=== PATIENT | male | born 1960 | race Caucasian/White ===

== ENCOUNTER 2017-06-28 10:18 | Emergency (ER) | payer MEDICAID, SELFPAY ==
[2017-06-28 10:20] VITALS: BP 133/84; PULSE 88; RESP 16; TEMP 36.6; O2SAT 99; BMI 28.1
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
--- NOTE | 2017-06-28 17:56 | ED.VISSUMM ---
- ER Visit Summary Date of Service: 06/28/17 Chief Complaint: Heroin withdrawal History of Present Illness: The patient is a 57 M with no primary care physician. He reports that he has been using heroin IV for approximately 5 years. States his last use was 3 days ago. States that he feels like he is shaky and has electricity running through his body. He has been unable to sleep. Also reports that he has had diffuse abdominal pain he is vomited multiple times without blood in his emesis. He has diarrhea all the time without blood in his stool. He complains of diffuse myalgias and arthralgias. Patient reports that he has had clonidine in the past and that has never worked and that he wants Suboxone. Physical Examination: Vitals: Stable. Afebrile. General: Well-nourished and well-developed. Head: Normocephalic atraumatic. Neck: Supple, no lymphadenopathy. No JVD. Nontender. Cardiovascular: Regular rate and rhythm. No murmurs. Respiratory: No respiratory distress. Clear to auscultation bilaterally. Abdominal: Soft, nontender, nondistended, normal bowel sounds. No guarding, rebound, or peritoneal signs. Back: Nontender. Extremities: Nontender, no edema. Skin: Normal color, no rash. Neurologic: Alert and oriented ?3. Cranial nerves II through XII are intact. Normal strength and sensation. Psych: Agitated. Emergency Department Course and Treatment: The patient's significant other pulled me aside and stated that he is not being truthful. She reports that he was released from prison 2 weeks ago and has not had opportunity to get her 1 or fentanyl as he states that he is. However, she reports that he has been taking my pills by the handful and drinking alcohol like a fish. I discussed the patient with [facility] and they have come down the emergency department to see him. They asked that I have him seen by the counseling center. Patient denies any suicidal or homicidal ideation. No auditory or visual hallucinations. I wrote for blood work and a alcohol level. The patient walked out of the emergency department before any of this was obtained. I have no reason to pink slip him and he was allowed to leave. Disposition: Eloped Impression: 1. Reported opiate withdrawal. This note was generated with [employer] software. It may contain incorrect words, spelling, and punctuation that were not noted in review of the chart prior to signing ED Disposition - Plan for ED Patient: Disposition: Against Medical Advice Chief Complaint: Subst Abuse Referrals: Care Physician,No Primary [Primary Care Provider] -
--- NOTE | 2017-06-28 17:59 | ED.DCSUM_ITS ---
- ER Visit Summary Date of Service: 06/28/17 Chief Complaint: Heroin withdrawal History of Present Illness: The patient is a 57 M with no primary care physician. He reports that he has been using heroin IV for approximately 5 years. States his last use was 3 days ago. States that he feels like he is shaky and has electricity running through his body. He has been unable to sleep. Also reports that he has had diffuse abdominal pain he is vomited multiple times without blood in his emesis. He has diarrhea all the time without blood in his stool. He complains of diffuse myalgias and arthralgias. Patient reports that he has had clonidine in the past and that has never worked and that he wants Suboxone. Physical Examination: Vitals: Stable. Afebrile. General: Well-nourished and well-developed. Head: Normocephalic atraumatic. Neck: Supple, no lymphadenopathy. No JVD. Nontender. Cardiovascular: Regular rate and rhythm. No murmurs. Respiratory: No respiratory distress. Clear to auscultation bilaterally. Abdominal: Soft, nontender, nondistended, normal bowel sounds. No guarding, rebound, or peritoneal signs. Back: Nontender. Extremities: Nontender, no edema. Skin: Normal color, no rash. Neurologic: Alert and oriented ?3. Cranial nerves II through XII are intact. Normal strength and sensation. Psych: Agitated. Emergency Department Course and Treatment: The patient's significant other pulled me aside and stated that he is not being truthful. She reports that he was released from alf 2 weeks ago and has not had opportunity to get her 1 or fentanyl as he states that he is. However, she reports that he has been taking my pills by the handful and drinking alcohol like a fish. I discussed the patient with [facility] and they have come down the emergency department to see him. They asked that I have him seen by the counseling center. Patient denies any suicidal or homicidal ideation. No auditory or visual hallucinations. I wrote for blood work and a alcohol level. The patient walked out of the emergency department before any of this was obtained. I have no reason to pink slip him and he was allowed to leave. Disposition: Eloped Impression: 1. Reported opiate withdrawal. This note was generated with [employer] software. It may contain incorrect words, spelling, and punctuation that were not noted in review of the chart prior to signing ED Disposition - Plan for ED Patient: Disposition: Against Medical Advice Chief Complaint: Subst Abuse Referrals: Care Physician,No Primary [Primary Care Provider] -
== END 2017-06-28 11:05 | disposition left against medical advice (07) ==
PROVIDERS: Emergency Provider Emergency Medicine
DX: F11.23 Opioid dependence with withdrawal (principal); T40.1X1A Poisoning by heroin, accidental (unintentional), initial encounter; R25.1 Tremor, unspecified; R10.9 Unspecified abdominal pain; R11.10 Vomiting, unspecified; Y92.9 Unspecified place or not applicable
CPT/HCPCS: 99281

== ENCOUNTER 2017-06-28 16:49 | Emergency (ER) | payer MEDICAID, SELFPAY ==
[2017-06-28 16:51] VITALS: BP 120/85; PULSE 83; RESP 16; TEMP 36.2; O2SAT 95; BMI 24.0
--- NOTE | 2017-06-28 17:13 | EKG12_ITS ---
Test Reason : MHC Blood Pressure : / mmHG Vent. Rate : 068 BPM Atrial Rate : 068 BPM P-R Int : 132 ms QRS Dur : 084 ms QT Int : 410 ms P-R-T Axes : 048 000 027 degrees QTc Int : 435 ms Normal sinus rhythm Normal ECG Confirmed by DESHAWN GORDON, TRACE ([id number]), science editor BOOKER WEAVER ([id number]) on 07/01/2017 1:58:51 PM Referred By: ANITHA Confirmed By:TRACE HESS MD
[2017-06-28] MEDS: LORazepam 2 MG/ML Syringe IM (17:34)
[2017-06-28] MEDS: DiphenhydrAMINE 50 MG/ML Syringe 25 MG IM (17:34)
[2017-06-28] MEDS: Haloperidol Lactate 5 MG/ML Vial 10 MG IM (17:34)
[2017-06-28 17:50] LABS: Bacteria 0 SEEN /hpf (None Seen); Mucous, Urine 0 SEEN /hpf (<or=2+); Red Blood Cells-Urine 0 SEEN /hpf (0-5); Squamous Epithelial Cells - UA 0 SEEN /hpf (0-5); White Blood Cells 0 SEEN /hpf (0-5)
[2017-06-28 17:51] LABS: AST(SGOT) 15 U/L (15-37); Alanine Aminotransfer ALT/SGPT 19 U/L (16-61); Albumin, Serum 3.4 g/dL (3.2-5.0); Alkaline Phosphatase 91 U/L (45-117); Bilirubin, Direct < 0.05 mg/dL (0.00-0.30); Protein, Total 7.4 g/dL (6.4-8.2)
[2017-06-28 17:53] LABS: Absolute Lymphocyte Count 2.68 X10^3/ul (0.83-4.51); Absolute Neutrophil Count 5.3 X10^3/uL (2.0-7.7); Basophil# 0.05 X10^3/uL; Basophil% 0.5 % (0-1); Eosinophils% 5.3 % (0-5); Hematocrit 39.6 % (40-54); Hemoglobin 13.8 g/dl (13.0-16.5); Lymphocyte # 2.68 X10^3/ul (4.0); Lymphocyte % 28.4 % (19-41); Mean Corp Hgb Conc 34.8 g/gl (32-36); Mean Corpuscular Hgb 31.4 pg (27.0-32.0); Mean Platelet Vol. 10.1 fl (6.2-12.0); Monocyte# 0.84 X10^3/uL; Monocyte% 8.9 % (0-10); Neutrophil # 5.32 X10^3/uL (2.7-7.7); Neutrophil % 56.5 % (47-70); POSITIVE COUNT NO; POSITIVE DIFFERENTIAL NO; POSITIVE MORPHOLOGY NO; Platelet Count 207 K/mm3 (150-450); RBC Distribution Width CV 13.2 % (11.6-14.6); White Blood Count 9.4 K/mm3 (4.4-11.0)
[2017-06-28 17:55] VITALS: BP 107/72; PULSE 72; RESP 13; O2SAT 95
[2017-06-28 18:01] VITALS: BP 100/68; PULSE 71; RESP 13; O2SAT 90
[2017-06-28 18:02] LABS: Color, Urine Yellow (Yellow); Glucose, Dipstick Normal (Normal); Ketone-Dipstick Negative (Negative); Leukocyte Esterase-Dipstick Negative /ul (Negative); Nitrite-Dipstick Negative (Negative); Occult Blood-Urine Negative /ul (Negative); Protein-Dipstick Negative (Negative); Urine Bilirubin Dipstick Negative (Negative); Urine Clarity Clear (Clear); Urine Urobilinogen Normal (Normal)
[2017-06-28 18:09] LABS: Anion Gap 9 (5-15); BUN 13 mg/dL (7-18); BUN/Creat Ratio 12.6 RATIO (10-20); Calcium,Total 8.5 mg/dL (8.5-10.1); Chloride 110 mmol/L (98-107); Creatinine, Serum 1.03 mg/dL (0.70-1.30); EST Glomerular Filtration Rate 79 mL/min (>60); Est Glom Filt Rate - Afr Amer 96 mL/min (>60); Estimated Creatinine Clearance 76.55 ml/min; Glucose 119 mg/dL (74-106); Potassium 3.7 mmol/L (3.5-5.1); Sodium Level 142 mmol/L (136-145); Thyroid Stim Hormone (TSH) 0.26 uIU/mL (0.358-3.74)
[2017-06-28 18:15] LABS: Amphetamine Urine VISTA NEGATIVE (<1000 ng/mL); Barbiturate Urine VISTA NEGATIVE (< 200 ng/mL); Benzodiazepine Urine VISTA POSITIVE (< 200 ng/mL); Cocaine Urine VISTA NEGATIVE (< 300 ng/mL); Ecstacy Urine VISTA NEGATIVE (< 500 ng/mL); Methadone Urine VISTA NEGATIVE (< 300 ng/mL); PCP Urine VISTA NEGATIVE (< 25 ng/mL); THC Urine VISTA NEGATIVE (< 50 ng/mL); Vista UDS pH Range 5
[2017-06-28 19:09] VITALS: BP 97/66; PULSE 70; RESP 20; O2SAT 97
[2017-06-28 20:39] VITALS: BP 100/66; PULSE 66; RESP 14; O2SAT 97
--- NOTE | 2017-06-28 21:14 | NURSING ---
CALLED [facility] TO SEE THIS PT
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
[2017-06-28 23:33] VITALS: BP 112/66; PULSE 67; RESP 18; O2SAT 99
[2017-06-29] VITALS (18 sets, daily range): BP systolic 92–125; BP diastolic 46–79; PULSE 70–118; RESP 14–22; O2SAT 92–98
--- NOTE | 2017-06-29 01:51 | ED.RN ---
PT WOKE UP AND ASKED TO GO TO THE BATHROOM AND A DRINK. THIS RN ASSESSED PT, PT WAS A&Ox3, NOT THREATENING TO LEAVE, AND UNDERSTOOD WHY HE WAS HERE. PT VERBALIZED UNDERSTANDING OF HAVING TO STAY IN ER. RESTRAINTS REMOVED.
--- NOTE | 2017-06-29 09:27 | ED.RN ---
AIDE IS COMING TO SEE PATIENT FROM [facility]
[2017-06-29] MEDS: LORazepam 1 MG Tablet 2 MG PO (16:36)
[2017-06-29] MEDS: DiphenhydrAMINE 50 MG/ML Syringe IM (22:10)
--- NOTE | 2017-06-29 22:29 | ED.RN ---
EARNESTINE FROM CRISIS CALLED STATING PATIENT WAS DENIED AT [facility] BECAUSE THEY BELIEVE HIS ISSUES ARE DRUG/ALCOHOL RELATED. EARNESTINE ALSO STATED CRISIS WOULD COME BACK IN THE MORNING TO TRY AND PLACE PATIENT AT [facility]. [facility] AND [facility]IS WILL TRY AGAIN IN THE MORNING.
[2017-06-30] VITALS (13 sets, daily range): BP systolic 102–125; BP diastolic 68–92; PULSE 18–80; RESP 12–20; O2SAT 94–99
[2017-06-30] MEDS: Ziprasidone IM 20 MG/ML VIAL IM (05:10)
--- NOTE | 2017-06-30 09:24 | NURSING ---
KRYSTLE, CRISIS, HERE
--- NOTE | 2017-06-30 12:16 | ED.RN ---
PT INFORMED STILL WAITING ON TRYING TO FIND PLACEMENT, PT STANDING IN DOORWAY RAPPING TO THE ED STAFF.
[2017-06-30] MEDS: Famotidine 20 MG Tablet 40 MG PO (15:06)
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
[2017-06-30] MEDS: Pramipexole Di-HCl 0.25 MG Tablet PO (16:08)
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
== END 2017-06-30 22:15 ==
PROVIDERS: Emergency Provider Emergency Medicine
DX: F10.129 Alcohol abuse with intoxication, unspecified (principal); F19.10 Other psychoactive substance abuse, uncomplicated; Y90.6 Blood alcohol level of 120-199 mg/100 ml; R45.851 Suicidal ideations; R45.850 Homicidal ideations; Z72.0 Tobacco use; F11.23 Opioid dependence with withdrawal; T40.1X1A Poisoning by heroin, accidental (unintentional), initial encounter; R25.1 Tremor, unspecified; R10.9 Unspecified abdominal pain; R11.10 Vomiting, unspecified; Y92.9 Unspecified place or not applicable
CPT/HCPCS: 80048; 80076; 80307; 80320; 81001; 84443; 85025; 93005; 96372; 99281; 99285; P9612; G0480; J3486

== ENCOUNTER 2017-08-03 20:46 | Emergency (ER) | payer MEDICAID, SELFPAY ==
[2017-08-03 20:48] VITALS: BP 166/88; PULSE 100; RESP 20; TEMP 36.7; O2SAT 96; BMI 30.5
[2017-08-03 21:51] VITALS: PULSE 102; RESP 16; O2SAT 97
--- NOTE | 2017-08-03 21:52 | EKG12_ITS ---
Test Reason : SUICIDAL Blood Pressure : / mmHG Vent. Rate : 080 BPM Atrial Rate : 080 BPM P-R Int : 134 ms QRS Dur : 082 ms QT Int : 368 ms P-R-T Axes : 030 -09 008 degrees QTc Int : 424 ms Normal sinus rhythm Normal ECG Confirmed by ZEV YUEN ([id number]), primer expeditor and drier BOOKER WEAVER ([id number]) on 08/09/2017 2:48:26 PM Referred By: JO Confirmed By:ZEV YUEN
[2017-08-03 22:05] LABS: Absolute Lymphocyte Count 1.91 X10^3/ul (0.83-4.51); Absolute Neutrophil Count 7.7 X10^3/uL (2.0-7.7); Basophil# 0.03 X10^3/uL; Basophil% 0.3 % (0-1); Eosinophil# 0.28 X10^3/uL; Eosinophils% 2.6 % (0-5); Hematocrit 40.9 % (40-54); Hemoglobin 13.8 g/dl (13.0-16.5); Lymphocyte # 1.91 X10^3/ul (4.0); Lymphocyte % 17.7 % (19-41); Mean Corp Hgb Conc 33.7 g/gl (32-36); Mean Corpuscular Hgb 31.4 pg (27.0-32.0); Mean Corpuscular Volume 93.2 fL (80-94); Mean Platelet Vol. 10.2 fl (6.2-12.0); Monocyte# 0.88 X10^3/uL; Monocyte% 8.1 % (0-10); Neutrophil # 7.71 X10^3/uL (2.7-7.7); Neutrophil % 71.2 % (47-70); Platelet Count 201 K/mm3 (150-450); RBC Distribution Width CV 13.1 % (11.6-14.6); RBC Distribution Width SD 44.7 fl (35.1-43.9); Red Blood Count 4.39 M/mm3 (4.6-6.2); White Blood Count 10.8 K/mm3 (4.4-11.0)
[2017-08-03 22:06] LABS: POSITIVE COUNT NO; POSITIVE DIFFERENTIAL NO; POSITIVE MORPHOLOGY NO
[2017-08-03 22:12] LABS: Amphetamine Urine VISTA NEGATIVE (<1000 ng/mL); Barbiturate Urine VISTA NEGATIVE (< 200 ng/mL); Benzodiazepine Urine VISTA POSITIVE (< 200 ng/mL); Cocaine Urine VISTA NEGATIVE (< 300 ng/mL); Ecstacy Urine VISTA NEGATIVE (< 500 ng/mL); Methadone Urine VISTA NEGATIVE (< 300 ng/mL); PCP Urine VISTA NEGATIVE (< 25 ng/mL); THC Urine VISTA NEGATIVE (< 50 ng/mL); Vista UDS pH Range 6
[2017-08-03 22:14] LABS: ALB/GLOB Ratio 0.9 RATIO (0.9-2.4); AST(SGOT) 10 U/L (15-37); Alanine Aminotransfer ALT/SGPT 18 U/L (16-61); Albumin, Serum 3.6 g/dL (3.2-5.0); Alkaline Phosphatase 70 U/L (45-117); Anion Gap 7 (5-15); BUN 17 mg/dL (7-18); BUN/Creat Ratio 12.8 RATIO (10-20); Calcium,Total 9.2 mg/dL (8.5-10.1); Chloride 111 mmol/L (98-107); Creatinine, Serum 1.33 mg/dL (0.70-1.30); EST Glomerular Filtration Rate 59 mL/min (>60); Est Glom Filt Rate - Afr Amer 71 mL/min (>60); Estimated Creatinine Clearance 59.29 ml/min; Globulin 4.1 g/dL (2.2-4.2); Glucose 129 mg/dL (74-106); Potassium 3.3 mmol/L (3.5-5.1); Protein, Total 7.7 g/dL (6.4-8.2); Sodium Level 143 mmol/L (136-145)
--- NOTE | 2017-08-03 22:24 | ED.VISSUMM ---
- ER Visit Summary Date of Service: 08/03/17 Chief Complaint: Hearing voices and suicidal ideation History of Present Illness: The patient is a 57 M who states that for years he has been hearing voices. He states that over the past couple days they have been ladder telling him to kill himself. 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 It is while he was in long-term he was put on Depakote. He was seen about 1 month ago in the emergency room and was transferred to [facility]. He states he is restarted on his medicines. He states that the medicines have not controlled his voices. States he has not done any methamphetamines for about 3-1/2 years. He does use marijuana. He has no particular plan. He has been seen in counseling. Patient states that for years he has had very high highs and very low lows. He states that he is very feeling very low at the current time. Physical Examination: Afebrile vital signs are stable Gen: Well-nourished well-developed Head: Normocephalic atraumatic Eyes: Perrl EOMI ENT: TMs clear no rhinorrhea moist mucous membranes Neck: Supple no lymphadenopathy no JVD nontender CVS: Regular rate rhythm no murmurs normal S1-S2 Respiratory: No distress clear to auscultation bilaterally chest nontender Abdomen: Soft nontender nondistended normal bowel sounds no masses Back: Nontender Extremity: Nontender no edema Skin: Normal color no rash Neuro: alert orientated ?3 CN II-XII intact normal strength sensation reflexes gait cerebellar Psych: Admits to hearing voices that are telling him to kill himself. He does appear internally stimulated and has a rather flat affect Test Results: Psychiatric screening labs were obtained Emergency Department Course and Treatment: Patient was cleared for psychiatric evaluation. Crisis was contacted. Impression: 1. Schizophrenia This note was generated with [employer] dictation software. It may contain incorrect words, spelling, and punctuation that were not noted in review of the chart prior to signing ED Disposition - Plan for ED Patient: Chief Complaint: Suicidal Referrals: Care Physician,No Primary [Primary Care Provider] -
--- NOTE | 2017-08-03 22:27 | ED.DCSUM_ITS ---
- ER Visit Summary Date of Service: 08/03/17 Chief Complaint: Hearing voices and suicidal ideation History of Present Illness: The patient is a 57 M who states that for years he has been hearing voices. He states that over the past couple days they have been ladder telling him to kill himself. 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 It is while he was in care home he was put on Depakote. He was seen about 1 month ago in the emergency room and was transferred to [facility]. He states he is restarted on his medicines. He states that the medicines have not controlled his voices. States he has not done any methamphetamines for about 3-1/2 years. He does use marijuana. He has no particular plan. He has been seen in counseling. Patient states that for years he has had very high highs and very low lows. He states that he is very feeling very low at the current time. Physical Examination: Afebrile vital signs are stable Gen: Well-nourished well-developed Head: Normocephalic atraumatic Eyes: Perrl EOMI ENT: TMs clear no rhinorrhea moist mucous membranes Neck: Supple no lymphadenopathy no JVD nontender CVS: Regular rate rhythm no murmurs normal S1-S2 Respiratory: No distress clear to auscultation bilaterally chest nontender Abdomen: Soft nontender nondistended normal bowel sounds no masses Back: Nontender Extremity: Nontender no edema Skin: Normal color no rash Neuro: alert orientated ?3 CN II-XII intact normal strength sensation reflexes gait cerebellar Psych: Admits to hearing voices that are telling him to kill himself. He does appear internally stimulated and has a rather flat affect Test Results: Psychiatric screening labs were obtained Emergency Department Course and Treatment: Patient was cleared for psychiatric evaluation. Crisis was contacted. Impression: 1. Schizophrenia This note was generated with [employer]elixir dictation software. It may contain incorrect words, spelling, and punctuation that were not noted in review of the chart prior to signing ED Disposition - Plan for ED Patient: Chief Complaint: Suicidal Referrals: Care Physician,No Primary [Primary Care Provider] -
[2017-08-03 22:28] LABS: Alcohol, Blood (Medical)-Serum < 3.0 mg/dL; Valproic Acid (Depakene) Level 70 ug/mL (50-100)
[2017-08-04] VITALS (10 sets, daily range): BP systolic 103–134; BP diastolic 61–94; PULSE 66–77; RESP 16–20; O2SAT 96–99
[2017-08-04] MEDS: LORazepam 1 MG Tablet PO (04:27)
[2017-08-04] MEDS: Divalproex Sodium 250 MG Tablet 500 MG PO (07:44)
[2017-08-04] MEDS: Gabapentin 300 MG Capsule PO (07:44)
[2017-08-04] MEDS: Pantoprazole Sodium 40 MG Tablet PO (07:45)
== END 2017-08-04 10:53 ==
PROVIDERS: Emergency Medicine; Emergency Provider Emergency Medicine
DX: F20.9 Schizophrenia, unspecified (principal); F31.9 Bipolar disorder, unspecified; R45.851 Suicidal ideations; F12.90 Cannabis use, unspecified, uncomplicated; Z72.0 Tobacco use
CPT/HCPCS: 80053; 80164; 80307; 80320; 85025; 93005; 99283; G0480

== ENCOUNTER 2017-10-23 22:58 | Emergency (ER) | payer MEDICAID, SELFPAY ==
[2017-10-23 22:58] VITALS: BP 149/72; PULSE 92; RESP 15; TEMP 37; BMI 30.4
[2017-10-23] MEDS: Acetaminophen 500 MG Tablet 1000 MG PO (23:32)
[2017-10-23 23:47] LABS: Absolute Lymphocyte Count 2.72 X10^3/ul (0.83-4.51); Absolute Neutrophil Count 5.8 X10^3/uL (2.0-7.7); Basophil# 0.02 X10^3/uL; Basophil% 0.2 % (0-1); Eosinophil# 0.31 X10^3/uL; Eosinophils% 3.3 % (0-5); Hematocrit 40.3 % (40-54); Hemoglobin 13.9 g/dl (13.0-16.5); Lymphocyte # 2.72 X10^3/ul (4.0); Lymphocyte % 29.2 % (19-41); Mean Corp Hgb Conc 34.5 g/gl (32-36); Mean Corpuscular Volume 89.8 fL (80-94); Monocyte% 5.4 % (0-10); Neutrophil # 5.75 X10^3/uL (2.7-7.7); Neutrophil % 61.7 % (47-70); Platelet Count 194 K/mm3 (150-450); RBC Distribution Width CV 13.1 % (11.6-14.6); RBC Distribution Width SD 42.6 fl (35.1-43.9); Red Blood Count 4.49 M/mm3 (4.6-6.2); White Blood Count 9.3 K/mm3 (4.4-11.0)
[2017-10-23 23:48] LABS: POSITIVE COUNT NO; POSITIVE DIFFERENTIAL NO; POSITIVE MORPHOLOGY NO
[2017-10-24] VITALS (12 sets, daily range): BP systolic 110–137; BP diastolic 70–84; PULSE 60–81; RESP 16–18; O2SAT 95–99
[2017-10-24 00:01] LABS: Anion Gap 8 (5-15); BUN 16 mg/dL (7-18); BUN/Creat Ratio 12.9 RATIO (10-20); Calcium,Total 8.5 mg/dL (8.5-10.1); Chloride 111 mmol/L (98-107); Creatinine, Serum 1.24 mg/dL (0.70-1.30); EST Glomerular Filtration Rate 64 mL/min (>60); Est Glom Filt Rate - Afr Amer 77 mL/min (>60); Estimated Creatinine Clearance 63.59 ml/min; Glucose 120 mg/dL (74-106); Potassium 3.9 mmol/L (3.5-5.1); Sodium Level 143 mmol/L (136-145)
[2017-10-24 00:13] LABS: Alcohol, Blood (Medical)-Serum < 3.0 mg/dL; Valproic Acid (Depakene) Level 88 ug/mL (50-100)
[2017-10-24 00:35] LABS: Vista UDS pH Range 6
[2017-10-24] MEDS: Ziprasidone IM 20 MG/ML VIAL IM (00:35)
[2017-10-24 00:46] LABS: Amphetamine Urine VISTA NEGATIVE (<1000 ng/mL); Barbiturate Urine VISTA NEGATIVE (< 200 ng/mL); Benzodiazepine Urine VISTA NEGATIVE (< 200 ng/mL); Cocaine Urine VISTA NEGATIVE (< 300 ng/mL); Ecstacy Urine VISTA NEGATIVE (< 500 ng/mL); Methadone Urine VISTA NEGATIVE (< 300 ng/mL); PCP Urine VISTA NEGATIVE (< 25 ng/mL); THC Urine VISTA NEGATIVE (< 50 ng/mL)
--- NOTE | 2017-10-24 02:49 | ED.VISSUMM ---
- ER Visit Summary Date of Service: 10/24/17 Chief Complaint: Suicidal ideation History of Present Illness: The patient is a 57 M who goes to the counseling center. He reports he has had suicidal thoughts for the past 2-3 days. When asked about a plan he reports I cannot plan the next minute. He states that he has not slept for 3 days. States that he is having auditory hallucinations of music. He also reports that he is seeing shadow people. Patient reports that he is supposed to be on Remeron, Depakote, gabapentin and he ran out. When asked when he ran out he reports I do not know when. Physical Examination: Vitals: Stable. Afebrile. General: Well-nourished and well-developed. Head: Normocephalic atraumatic. Neck: Supple, no lymphadenopathy. No JVD. Nontender. Cardiovascular: Regular rate and rhythm. No murmurs. Respiratory: No respiratory distress. Clear to auscultation bilaterally. Abdominal: Soft, nontender, nondistended, normal bowel sounds. No guarding, rebound, or peritoneal signs. Back: Nontender. Extremities: Nontender, no edema. Skin: Normal color, no rash. Neurologic: Alert and oriented ?3. Cranial nerves II through XII are intact. Normal strength and sensation. Mental status exam: Patient appears their stated age. Good posture and grooming. Good eye contact. Normal rate, volume, and latency of speech. No homicidal ideation. Flow of thought is logical. Insight and judgment is fair. Test Results: CBC is normal. Chem-7 is more for chloride of 111 and glucose of 120. Tox screen shows opiates. Alcohol is negative. Depakote level is 88. Emergency Department Course and Treatment: Had a prolonged discussion with patient about treatment options. He was admitted to the hospital within the past few months with a similar episode. He was allowed to sleep in the emergency department overnight. On reassessment in the morning he reports that he is still having suicidal thoughts. Treatment Plan: The patient will be seen by the counseling center for evaluation. Disposition: Pending Impression: 1. Schizophrenia. 2. Depression. 3. Medication noncompliance. This note was generated with [employer] software. It may contain incorrect words, spelling, and punctuation that were not noted in review of the chart prior to signing ED Disposition - Plan for ED Patient: Chief Complaint: Suicidal Instructions: ED Depression Prescriptions: Aripiprazole [Abilify] 5 mg PO DAILY #30 tablet Divalproex Sodium [Depakote] 500 mg PO UD #120 tablet. Gabapentin [Neurontin] 400 mg PO UD #120 capsule Mirtazapine [Remeron] 30 mg PO QHS #30 tablet Referrals: Counseling,Center [GROUP OF PHYSICIANS] - As soon as possible
[2017-10-24] MEDS: Gabapentin 400 MG Capsule PO ×2 (07:20→18:07)
[2017-10-24] MEDS: Divalproex Sodium 250 MG Tablet 500 MG PO (07:20)
--- NOTE | 2017-10-24 07:42 | ED.RN ---
BREAKFAST TRAY DELIVERED, PT MORNING MEDICATIONS GIVEN AT THAT TIME. PT REFUSED ABILIFY, PT STATES NO LONGER TAKING MEDICATION.
--- NOTE | 2017-10-24 11:32 | ED.RN ---
LUNCH TRAY DELIVERED, PT DENIES FURTHER NEEDS AT THIS TIME. CALL LIGHT IN REACH.
[2017-10-24] MEDS: Mirtazapine 30 MG Tablet PO (23:09)
[2017-10-24] MEDS: Divalproex Sodium 250 MG Tablet 1500 MG PO (23:10)
[2017-10-24] MEDS: Gabapentin 800 MG Tablet PO (23:10)
[2017-10-25] VITALS (8 sets, daily range): BP systolic 107–141; BP diastolic 67–79; PULSE 60–81; RESP 14–20; O2SAT 95–98
--- NOTE | 2017-10-25 07:21 | NURSING ---
CALLED [facility] FOR TRANSPORT , NONE 1499 CALLED [facility], NONE AVAILABLE CALLED [facility], NONE AVAILABLE CALLED [facility] FOR RIDE. WAITING UNTIL 1499
--- NOTE | 2017-10-25 10:14 | NURSING ---
CALLED [facility], STILL NOT ABLE TO TRANSPORT PATIENT
[2017-10-25] MEDS: Divalproex Sodium 250 MG Tablet 500 MG PO (11:02)
[2017-10-25] MEDS: Gabapentin 400 MG Capsule PO (11:02)
--- NOTE | 2017-10-25 11:14 | NURSING ---
MAGGI GRAVES CALLED ASKING ABOUT STATUS OF PATIENT. INFORMED WE WERE WAITING ON A RIDE FOR HIM.
[2017-10-25] MEDS: Famotidine 20 MG Tablet 40 MG PO (13:43)
== END 2017-10-25 15:22 ==
PROVIDERS: Emergency Provider Emergency Medicine
DX: F20.9 Schizophrenia, unspecified (principal); F32.9 Major depressive disorder, single episode, unspecified; Z91.14 Patient's other noncompliance with medication regimen; R45.851 Suicidal ideations; Z72.0 Tobacco use
CPT/HCPCS: 80048; 80164; 80307; 80320; 85025; 96372; 99285; G0480; J3486

== ENCOUNTER 2017-11-18 20:06 | Emergency (ER) | payer MEDICAID, SELFPAY ==
[2017-11-18 20:08] VITALS: BP 113/71; PULSE 96; RESP 15; TEMP 36.7; O2SAT 98; BMI 28.9
[2017-11-18 21:04] LABS: Absolute Lymphocyte Count 0.73 X10^3/ul (0.83-4.51); Absolute Neutrophil Count 2.2 X10^3/uL (2.0-7.7); Basophil# 0.05 X10^3/uL; Basophil% 1.4 % (0-1); Eosinophil# 0.25 X10^3/uL; Eosinophils% 6.9 % (0-5); Hematocrit 43.1 % (40-54); Hemoglobin 14.8 g/dl (13.0-16.5); Lymphocyte # 0.73 X10^3/ul (4.0); Lymphocyte % 20.2 % (19-41); Mean Corp Hgb Conc 34.3 g/gl (32-36); Mean Corpuscular Hgb 30.8 pg (27.0-32.0); Mean Corpuscular Volume 89.6 fL (80-94); Mean Platelet Vol. 10.2 fl (6.2-12.0); Monocyte# 0.39 X10^3/uL; Monocyte% 10.8 % (0-10); Neutrophil # 2.19 X10^3/uL (2.7-7.7); Neutrophil % 60.7 % (47-70); Platelet Count 163 K/mm3 (150-450); RBC Distribution Width CV 13.4 % (11.6-14.6); Red Blood Count 4.81 M/mm3 (4.6-6.2); White Blood Count 3.6 K/mm3 (4.4-11.0)
[2017-11-18 21:06] LABS: POSITIVE COUNT NO; POSITIVE DIFFERENTIAL NO; POSITIVE MORPHOLOGY NO
[2017-11-18 21:12] LABS: Anion Gap 10 (5-15); BUN 19 mg/dL (7-18); Calcium,Total 8.6 mg/dL (8.5-10.1); Chloride 103 mmol/L (98-107); Creatinine, Serum 1.58 mg/dL (0.70-1.30); EST Glomerular Filtration Rate 48 mL/min (>60); Est Glom Filt Rate - Afr Amer 58 mL/min (>60); Estimated Creatinine Clearance 49.91 ml/min; Glucose 71 mg/dL (74-106); Potassium 3.4 mmol/L (3.5-5.1); Sodium Level 139 mmol/L (136-145)
[2017-11-18 21:18] LABS: AST(SGOT) 300 U/L (15-37); Alanine Aminotransfer ALT/SGPT 353 U/L (16-61); Albumin, Serum 3.8 g/dL (3.2-5.0); Alkaline Phosphatase 289 U/L (45-117); Bilirubin, Direct 0.25 mg/dL (0.00-0.30); Globulin 4.2 g/dL (2.2-4.2)
[2017-11-18 21:21] LABS: Bacteria 0 SEEN /hpf (None Seen); Red Blood Cells-Urine 0 SEEN /hpf (0-5)
[2017-11-18 21:24] LABS: Color, Urine Yellow (Yellow); Glucose, Dipstick Normal (Normal); Ketone-Dipstick 5 mg/dl (Negative); Leukocyte Esterase-Dipstick 25 /ul (Negative); Nitrite-Dipstick Negative (Negative); Occult Blood-Urine 10 /ul (Negative); Protein-Dipstick 30 mg/dl (Negative); Specific Gravity, Urine 1.025 (1.002-1.030); Urine Clarity Clear (Clear); Urine Urobilinogen 8 mg/dl (Normal)
[2017-11-18 21:28] LABS: Urine Bilirubin Dipstick 1 mg/dL (Negative)
[2017-11-18 21:31] LABS: Hyaline Cast 0-5 SEEN /lpf (0-5); Mucous, Urine 2+ /hpf (<or=2+); Squamous Epithelial Cells - UA 0-5 SEEN /hpf (0-5); White Blood Cells 0-5 SEEN /hpf (0-5)
[2017-11-18 21:37] VITALS: RESP 16
[2017-11-18 21:37] LABS: Amphetamine Urine VISTA POSITIVE (<1000 ng/mL); Barbiturate Urine VISTA NEGATIVE (< 200 ng/mL); Benzodiazepine Urine VISTA NEGATIVE (< 200 ng/mL); Cocaine Urine VISTA NEGATIVE (< 300 ng/mL); Ecstacy Urine VISTA POSITIVE (< 500 ng/mL); Methadone Urine VISTA NEGATIVE (< 300 ng/mL); PCP Urine VISTA NEGATIVE (< 25 ng/mL); THC Urine VISTA NEGATIVE (< 50 ng/mL); Vista UDS pH Range 5
--- NOTE | 2017-11-18 22:43 | ED.VISSUMM ---
- ER Visit Summary Date of Service: 11/18/17 Chief Complaint: Hallucinations History of Present Illness: The patient is a 57 M who reports hearing voices and seeing dark shadows. He states that he has been injecting meth for the last 2 weeks, last use today. He states that he stopped taking his psych meds 2 weeks ago also because he does not need them anymore. He is not very forthcoming with me for information stating that he already told the nurses everything. Physical Examination: Vital signs are unremarkable. Head and neck examination is normal. Heart is regular rate and rhythm. Lung sounds are clear. Abdomen is soft and nontender. He has no CVA tenderness. Extremity examination reveals full strength and sensation throughout. Psychiatric evaluation: The patient is not forthcoming with details. He does admit to auditory and visual hallucinations. Test Results: CBC reveals white count 3.6, otherwise normal. Chemistry studies reveal slightly low potassium at 3.4. BUN is 19 and creatinine is 1.58. LFTs are significant for an ALT of 353, AST 300, alk phos of 289. Urinalysis shows no sign of infection or blood. Tox screen is positive for amphetamines, meth-MDMA. EtOH is unremarkable. Emergency Department Course and Treatment: On review of records it appears patient has not had elevated LFTs in the past. This will require further follow-up as an outpatient. Patient is ordered 40 mEq of potassium chloride. Patient has been seen by Bernabe from the counseling center. Patient has reportedly been accepted at [facility]. Treatment Plan: [] Disposition: Transfer Impression: 1. Suicidal ideation 2. Visual and auditory hallucinations 3. Elevated LFTs 4. Mild renal insufficiency 5. History of schizophrenia with medication noncompliance 6. Drug abuse This note was generated with [employer] ([employer]ation software. It may contain incorrect words, spelling, and punctuation that were not noted in review of the chart prior to signing ED Disposition - Plan for ED Patient: Chief Complaint: Suicidal Referrals: Care Physician,No Primary [Primary Care Provider] -
[2017-11-19] VITALS (8 sets, daily range): BP systolic 102–116; BP diastolic 63–69; PULSE 80–81; RESP 16–18; TEMP 36.7; O2SAT 96–98
--- NOTE | 2017-11-19 00:32 | ED.RN ---
[facility] CALL[facility], NONE AVAILABLE UNTIL AFTER 8AM
[2017-11-19] MEDS: Mirtazapine 15 MG Tablet PO (01:06)
[2017-11-19] MEDS: Pantoprazole Sodium 40 MG Tablet PO (01:06)
[2017-11-19] MEDS: OLANZapine 5 MG/TAB TAB.RAPDIS 10 MG PO (01:06)
--- NOTE | 2017-11-19 05:27 | ED.RN ---
[facility] CALL BACK AFTER 829, NOT SURE WHAT WE WILL HAVE FOR [facility] [place] WE WILL NOT BE AVAILABLE UNTIL THE AFTERNOON SOMETIME
--- NOTE | 2017-11-19 07:43 | NURSING ---
CALLED [facility] FOR TRANSPORT. ETA IS ABOUT HALF HOUR
== END 2017-11-19 08:07 ==
PROVIDERS: Emergency Provider Emergency Medicine
DX: R45.851 Suicidal ideations (principal); R44.0 Auditory hallucinations; R44.1 Visual hallucinations; F20.9 Schizophrenia, unspecified; R94.5 Abnormal results of liver function studies; N28.9 Disorder of kidney and ureter, unspecified; F11.10 Opioid abuse, uncomplicated; Z91.14 Patient's other noncompliance with medication regimen; Z72.0 Tobacco use
CPT/HCPCS: 36415; 80048; 80076; 80307; 80320; 81001; 85025; 99285; G0480

== ENCOUNTER 2018-05-26 14:46 | Emergency (ER) | payer MEDICAID, SELFPAY ==
[2018-05-26] VITALS (7 sets, daily range): BP systolic 135; BP diastolic 79–82; PULSE 86–100; RESP 14–20; TEMP 36.9; O2SAT 96–97; BMI 28.1
--- NOTE | 2018-05-26 14:53 | ED.RN ---
pt remains in triage under 1:1 observation awaiting a room assignment
--- NOTE | 2018-05-26 15:09 | EKG12_ITS ---
Test Reason : MHC Blood Pressure : / mmHG Vent. Rate : 083 BPM Atrial Rate : 083 BPM P-R Int : 130 ms QRS Dur : 080 ms QT Int : 372 ms P-R-T Axes : 051 -32 029 degrees QTc Int : 437 ms Normal sinus rhythm Left axis deviation Abnormal ECG Confirmed by DESHAWN GORDON, TRACE ([id number]), greeting card editor BOOKER WEAVER ([id number]) on 05/30/2018 10:41:39 AM Referred By: MELODY/RICHARD Confirmed By:RTACE HESS MD
--- NOTE | 2018-05-26 15:10 | ED.VISSUMM ---
- ER Visit Summary Date of Service: 05/26/18 Chief Complaint: Suicidal thoughts, auditory hallucinations History of Present Illness: The patient is a 58 M who states he is feeling suicidal. He states he is felt this way for 2 days. He thought about shooting himself. He has no access to guns at his house. He states he feels depressed. He has not eaten well and has not slept in 15 days. He states he is hearing voices that are commanding him to hurt himself. He cannot remember what medications he is taking but he does have a history of schizophrenia. He sees a female psychiatrist at the [facility]. He does have a history of psychiatric admissions in the past. Physical Examination: Vital signs reviewed. HEENT exam unremarkable. Heart is regular rate and rhythm. Lungs clear to auscultation. Abdomen soft and nontender. Extremities reveal no edema or trauma. Neurologic exam is normal. He does voice suicidal thoughts. He has a flat affect. His judgment is poor. He does not appear to be internally stimulated. Test Results: Chloride 108, BUN 20, creatinine 1.39. CBC, urinalysis normal. Tox screen shows opiates and amphetamines and alcohol level is normal. Emergency Department Course and Treatment: Patient was evaluated by crisis and they feel he needs to be transferred to a psychiatric facility. [place] slip will be signed and he will be transferred to a psychiatric facility. Treatment Plan: [] Disposition: Transfer Impression: Suicidal ideation, auditory hallucinations This note was generated with Odyssey The[employer] dictation software. It may contain incorrect words, spelling, and punctuation that were not noted in review of the chart prior to signing ED Disposition - Plan for ED Patient: Referrals: Care Physician,No Primary [Primary Care Provider] -
[2018-05-26 15:53] LABS: Absolute Lymphocyte Count 2.39 X10^3/ul (0.83-4.51); Basophil# 0.04 X10^3/uL; Basophil% 0.5 % (0-1); Eosinophil# 0.49 X10^3/uL; Eosinophils% 5.6 % (0-5); Hematocrit 44.5 % (40-54); Hemoglobin 14.9 g/dl (13.0-16.5); Lymphocyte # 2.39 X10^3/ul (4.0); Lymphocyte % 27.3 % (19-41); Mean Corp Hgb Conc 33.5 g/gl (32-36); Mean Corpuscular Hgb 30.8 pg (27.0-32.0); Mean Corpuscular Volume 91.9 fL (80-94); Mean Platelet Vol. 10.1 fl (6.2-12.0); Monocyte# 0.79 X10^3/uL; Neutrophil # 5.04 X10^3/uL (2.7-7.7); Neutrophil % 57.4 % (47-70); Platelet Count 216 K/mm3 (150-450); RBC Distribution Width CV 13.3 % (11.6-14.6); RBC Distribution Width SD 43.8 fl (35.1-43.9); Red Blood Count 4.84 M/mm3 (4.6-6.2); White Blood Count 8.8 K/mm3 (4.4-11.0)
[2018-05-26 15:58] LABS: POSITIVE COUNT NO; POSITIVE DIFFERENTIAL NO; POSITIVE MORPHOLOGY NO
[2018-05-26 16:14] LABS: AST(SGOT) 14 U/L (15-37); Alanine Aminotransfer ALT/SGPT 21 U/L (16-61); Albumin, Serum 3.4 g/dL (3.2-5.0); Alkaline Phosphatase 95 U/L (45-117); Anion Gap 7 (5-15); BUN 20 mg/dL (7-18); BUN/Creat Ratio 14.4 RATIO (10-20); Bilirubin, Direct 0.11 mg/dL (0.00-0.30); Calcium,Total 8.6 mg/dL (8.5-10.1); Chloride 108 mmol/L (98-107); Creatinine, Serum 1.39 mg/dL (0.70-1.30); EST Glomerular Filtration Rate 56 mL/min (>60); Est Glom Filt Rate - Afr Amer 68 mL/min (>60); Estimated Creatinine Clearance 56.04 ml/min; Globulin 3.8 g/dL (2.2-4.2); Glucose 94 mg/dL (74-106); Potassium 3.8 mmol/L (3.5-5.1); Protein, Total 7.2 g/dL (6.4-8.2); Sodium Level 143 mmol/L (136-145)
--- NOTE | 2018-05-26 16:16 | ED.RN ---
1:1 SITTER SUICIDE PRECAUTIONS INITIATED AT 1500 . PT ADMITS TO HEARING VOICES, VISUAL HALLUCINATIONS, FREQUENT SUICIDAL THOUGHTS WITH PLAN OF SHOOTING HIMSELF. PT DENIES HAVING ACCESS TO A GUN. PT GUARDED, RELUCTANT TO DISCUSS MENTAL HEALTH HISTORY. COOPERATIVE AT THIS TIME.
[2018-05-26 16:38] LABS: Alcohol, Blood (Medical)-Serum < 3.0 mg/dL
[2018-05-26 17:04] LABS: Bacteria 0 SEEN /hpf (None Seen); Mucous, Urine 0 SEEN /hpf (<or=2+); Red Blood Cells-Urine 0 SEEN /hpf (0-5); Squamous Epithelial Cells - UA 0 SEEN /hpf (0-5); White Blood Cells 0 SEEN /hpf (0-5)
[2018-05-26 17:15] LABS: Color, Urine Yellow (Yellow); Glucose, Dipstick 100 mg/dl (Normal); Ketone-Dipstick 5 mg/dl (Negative); Leukocyte Esterase-Dipstick Negative /ul (Negative); Nitrite-Dipstick Negative (Negative); Occult Blood-Urine Negative /ul (Negative); Protein-Dipstick 15 mg/dl (Negative); Urine Bilirubin Dipstick Negative (Negative); Urine Clarity Clear (Clear); Urine Urobilinogen 1 mg/dl (Normal)
[2018-05-26 17:16] LABS: Calcium Oxalate Crystals Ur 1+ /hpf (<or=2+)
[2018-05-26 17:54] LABS: Amphetamine Urine VISTA POSITIVE (<1000 ng/mL); Barbiturate Urine VISTA NEGATIVE (< 200 ng/mL); Benzodiazepine Urine VISTA NEGATIVE (< 200 ng/mL); Cocaine Urine VISTA NEGATIVE (< 300 ng/mL); Ecstacy Urine VISTA NEGATIVE (< 500 ng/mL); Methadone Urine VISTA NEGATIVE (< 300 ng/mL); PCP Urine VISTA NEGATIVE (< 25 ng/mL); THC Urine VISTA NEGATIVE (< 50 ng/mL); Vista UDS pH Range 5
--- NOTE | 2018-05-26 19:45 | CM.ED ---
SOCIAL WORK NOTE PER WARP COILER, GEOFFREY, PT HAS BEEN ASSESSED AND REQUIRES INPT PSYCH HOSPITALIZATION. GEOFFREY TO WORK ON PLACEMENT. MADHU MERCHANT, POLITICAL WORKER, VAT OVERHAULER.
--- NOTE | 2018-05-26 21:40 | ED.RN ---
WAITING TO HEAR FROM [facility]
[2018-05-27] VITALS (9 sets, daily range): BP systolic 126–141; BP diastolic 78–91; PULSE 71–82; RESP 14–20; O2SAT 97–100
== END 2018-05-27 07:41 ==
LOC: ED 15:52
PROVIDERS: Emergency Provider Emergency Medicine
DX: R45.851 Suicidal ideations (principal); R44.0 Auditory hallucinations; Z72.0 Tobacco use
CPT/HCPCS: 80048; 80076; 80307; 80320; 81001; 85025; 93005; 99284; G0480

== ENCOUNTER 2018-06-11 17:35 | Emergency (ER) | payer MEDICAID, SELFPAY ==
[2018-05-26 14:47] VITALS: BMI 28.1
[2018-06-11 17:36] VITALS: BP 141/94; PULSE 86; RESP 18; TEMP 36.7; O2SAT 99; BMI 28.1
--- NOTE | 2018-06-11 17:45 | ED.RN ---
room not available, HRO standing with pt until room is available.
[2018-06-11 18:43] VITALS: BP 144/88; PULSE 86; RESP 16; O2SAT 100
--- NOTE | 2018-06-11 18:47 | ED.VISSUMM ---
- ER Visit Summary Date of Service: 06/11/18 Chief Complaint: Paranoid behavior History of Present Illness: The patient is a 58 M presenting with paranoid behavior. Patient states that he told the police that the [employer] were out to get him. He states he is homicidal towards the [employer]. He is not suicidal. He admits to auditory hallucinations. He has a history of schizophrenia, bipolar, depression. He states he used methamphetamine yesterday which he believes was given to him by the [employer]. Physical Examination: Vitals are stable. Patient is afebrile. Alert no acute distress. HEENT exam is unremarkable. Neck is supple. Lungs are clear and equal bilaterally. Heart is regular rate and rhythm. Abdomen is soft nontender nondistended. Extremities are unremarkable. Skin is warm and dry. No focal neurologic deficit. Homicidal ideation Remainder of exam is unremarkable. Emergency Department Course and Treatment: CBC, chemistries unremarkable. Tox positive for opiates, amphetamine, methamphetamine, cocaine, THC. Alcohol is negative. Discussed with the counseling center for evaluation. Disposition: Per counseling center Impression: Paranoid behavior, homicidal ideation This note was generated with [employer] dictation software. It may contain incorrect words, spelling, and punctuation that were not noted in review of the chart prior to signing ED Disposition - Plan for ED Patient: Referrals: Care Physician,No Primary [Primary Care Provider] -
[2018-06-11 18:56] LABS: Absolute Lymphocyte Count 2.46 X10^3/ul (0.83-4.51); Absolute Neutrophil Count 4.9 X10^3/uL (2.0-7.7); Basophil# 0.01 X10^3/uL; Basophil% 0.1 % (0-1); Eosinophil# 0.16 X10^3/uL; Eosinophils% 1.9 % (0-5); Hematocrit 41.4 % (40-54); Hemoglobin 13.8 g/dl (13.0-16.5); Lymphocyte # 2.46 X10^3/ul (4.0); Lymphocyte % 29.7 % (19-41); Mean Corp Hgb Conc 33.3 g/gl (32-36); Mean Corpuscular Hgb 30.1 pg (27.0-32.0); Mean Corpuscular Volume 90.2 fL (80-94); Monocyte# 0.74 X10^3/uL; Monocyte% 8.9 % (0-10); Neutrophil # 4.91 X10^3/uL (2.7-7.7); Neutrophil % 59.3 % (47-70); Platelet Count 267 K/mm3 (150-450); RBC Distribution Width CV 12.9 % (11.6-14.6); RBC Distribution Width SD 41.8 fl (35.1-43.9); Red Blood Count 4.59 M/mm3 (4.6-6.2); White Blood Count 8.3 K/mm3 (4.4-11.0)
--- NOTE | 2018-06-11 18:56 | CM.ED ---
SOCIAL WORK NOTE DISCUSSED CASE WITH DR. ANGELES. PER DR. ANGELES, PT WITH HOMICIDAL IDEATIONS REQUIRING CRISIS EVALUATION. THIS WORKER TO REMAIN AVAILABLE FOR NEEDS. MADHU MERCHANT, SPECIAL EFFECTS ARTIST, THREAD WINDER.
[2018-06-11 18:57] LABS: POSITIVE COUNT NO; POSITIVE DIFFERENTIAL NO; POSITIVE MORPHOLOGY NO
[2018-06-11 19:10] LABS: Anion Gap 11 (5-15); BUN 15 mg/dL (7-18); BUN/Creat Ratio 11.7 RATIO (10-20); Calcium,Total 8.7 mg/dL (8.5-10.1); Chloride 106 mmol/L (98-107); Creatinine, Serum 1.28 mg/dL (0.70-1.30); EST Glomerular Filtration Rate 61 mL/min (>60); Est Glom Filt Rate - Afr Amer 74 mL/min (>60); Estimated Creatinine Clearance 60.86 ml/min; Glucose 90 mg/dL (74-106); Potassium 3.5 mmol/L (3.5-5.1); Sodium Level 142 mmol/L (136-145)
[2018-06-11 19:15] LABS: Amphetamine Urine VISTA POSITIVE (<1000 ng/mL); Barbiturate Urine VISTA NEGATIVE (< 200 ng/mL); Benzodiazepine Urine VISTA NEGATIVE (< 200 ng/mL); Cocaine Urine VISTA POSITIVE (< 300 ng/mL); Ecstacy Urine VISTA POSITIVE (< 500 ng/mL); Methadone Urine VISTA NEGATIVE (< 300 ng/mL); PCP Urine VISTA NEGATIVE (< 25 ng/mL); THC Urine VISTA POSITIVE (< 50 ng/mL); Vista UDS pH Range 7
[2018-06-11 19:23] LABS: Alcohol, Blood (Medical)-Serum < 3.0 mg/dL
--- NOTE | 2018-06-11 19:33 | ED.RN ---
CALLED THE [facility] AND NOTIFIED THE MANAGER INTEGRITY THAT THIS PT NEEDS TO BE EVALUATED BY CRISIS. SHE STATED SHE WILL LET EVETTE KNOW.
--- NOTE | 2018-06-11 19:48 | ED.RN ---
EVETTE FROM CRISIS STATED KRYSTLE FROM [facility] WILL BE HERE TO SEE THIS PT AT 830PM.
--- NOTE | 2018-06-11 20:46 | ED.RN ---
KRYSTLE CALLED AND STATED SHE IS ON HER WAY TO SEE THIS PT.
--- NOTE | 2018-06-11 21:20 | ED.RN ---
KRYSTLE FROM [facility] IS HERE.
[2018-06-11 21:53] VITALS: BP 149/105; PULSE 81; RESP 16; O2SAT 99
[2018-06-12] VITALS (9 sets, daily range): BP systolic 142–157; BP diastolic 85–95; PULSE 84–96; RESP 16–18; O2SAT 96–98
== END 2018-06-12 08:57 ==
PROVIDERS: Emergency Provider Emergency Medicine
DX: F20.0 Paranoid schizophrenia (principal); R45.850 Homicidal ideations; F31.9 Bipolar disorder, unspecified; F15.90 Other stimulant use, unspecified, uncomplicated; F12.90 Cannabis use, unspecified, uncomplicated; F11.90 Opioid use, unspecified, uncomplicated; F14.90 Cocaine use, unspecified, uncomplicated; Z72.0 Tobacco use
CPT/HCPCS: 80048; 80307; 80320; 85025; 99284; G0480

== ENCOUNTER 2018-07-11 16:23 | Emergency (ER) | payer MEDICAID, SELFPAY ==
[2018-07-11] VITALS (8 sets, daily range): BP systolic 128–148; BP diastolic 87–91; PULSE 84–104; RESP 16–18; TEMP 36.7; O2SAT 97–100; BMI 28.1
--- NOTE | 2018-07-11 16:40 | ED.VISSUMM ---
- ER Visit Summary Date of Service: 07/11/18 Chief Complaint: Acute on chronic depression and suicidal History of Present Illness: The patient is a 58 M history of underlying psychiatric illness and kidney stones. Patient states he is on psychiatric meds and he occasionally follows up with a counseling center. States he is more more depressed but does not have a specific reason. States that he is suicidal and has a plan on shooting himself. Denies having any kind but says he has access to gun. He has had a prior attempted overdose in the past. He has been admitted to prior psychiatric facilities but states he does not know when the last time that occurred was. He denies any attempts as of this time. Physical Examination: Middle-aged male. No acute distress. Vital signs are stable and afebrile. No signs of toxidrome nor smell of alcohol. HEENT exam unremarkable atraumatic. Neck nontender no signs of trauma lungs clear to auscultation bilaterally. Heart regular rhythm no murmur. Chest wall nontender. Abdomen soft nontender. Patient is moving all 4 extremities. There are no lacerations or track tee. Nontender normal range of motion. Normal strength. Back is nontender. Skin is unremarkable. Neurologically is awake and alert. Currently he is cooperative. Currently he is nonviolent and cooperative. Test Results: CBC unremarkable. Chemistries normal. Tox screen positive for methamphetamines. Alcohol negative. Emergency Department Course and Treatment: ED mental health evaluation. ED mental health labs. Patient doing well repeat exam 1815. Was given 1 mg of Ativan per request for his nerves. Treatment Plan: Crisis evaluated the patient and he is going to be transferred to [facility] psychiatric facility when a bed is available. Disposition: Transfer to psychiatric facility Impression: Acute on chronic depression History of psychiatric illness Suicidal ideation This note was generated with Cozyation software. It may contain incorrect words, spelling, and punctuation that were not noted in review of the chart prior to signing ED Disposition - Plan for ED Patient: Referrals: Care Physician,No Primary [Primary Care Provider] -
--- NOTE | 2018-07-11 16:43 | ED.DCSUM_ITS ---
- ER Visit Summary Date of Service: 07/11/18 Chief Complaint: Acute on chronic depression and suicidal History of Present Illness: The patient is a 58 M history of underlying psychiatric illness and kidney stones. Patient states he is on psychiatric meds and he occasionally follows up with a counseling center. States he is more more depressed but does not have a specific reason. States that he is suicidal and has a plan on shooting himself. Denies having any kind but says he has access to gun. He has had a prior attempted overdose in the past. He has been admitted to prior psychiatric facilities but states he does not know when the last time that occurred was. He denies any attempts as of this time. Physical Examination: Middle-aged male. No acute distress. Vital signs are stable and afebrile. No signs of toxidrome nor smell of alcohol. HEENT exam unremarkable atraumatic. Neck nontender no signs of trauma lungs clear to auscultation bilaterally. Heart regular rhythm no murmur. Chest wall nontender. Abdomen soft nontender. Patient is moving all 4 extremities. There are no lacerations or track tee. Nontender normal range of motion. Normal strength. Back is nontender. Skin is unremarkable. Neurologically is awake and alert. Currently he is cooperative. Currently he is nonviolent and cooperative. Test Results: CBC unremarkable. Chemistries normal. Tox screen positive for methamphetamines. Alcohol negative. Emergency Department Course and Treatment: ED mental health evaluation. ED mental health labs. Patient doing well repeat exam 1815. Was given 1 mg of Ativan per request for his nerves. Treatment Plan: Crisis evaluated the patient and he is going to be transferred to [facility] psychiatric facility when a bed is available. Disposition: Transfer to psychiatric facility Impression: Acute on chronic depression History of psychiatric illness Suicidal ideation This note was generated with SilverPushation software. It may contain incorrect words, spelling, and punctuation that were not noted in review of the chart prior to signing ED Disposition - Plan for ED Patient: Referrals: Care Physician,No Primary [Primary Care Provider] -
[2018-07-11 16:59] LABS: Absolute Lymphocyte Count 2.39 X10^3/ul (0.83-4.51); Absolute Neutrophil Count 5.1 X10^3/uL (2.0-7.7); Basophil# 0.02 X10^3/uL; Basophil% 0.2 % (0-1); Eosinophils% 3.5 % (0-5); Hematocrit 45.1 % (40-54); Hemoglobin 15.3 g/dl (13.0-16.5); Lymphocyte # 2.39 X10^3/ul (4.0); Lymphocyte % 27.8 % (19-41); Mean Corp Hgb Conc 33.9 g/gl (32-36); Mean Corpuscular Hgb 30.2 pg (27.0-32.0); Mean Corpuscular Volume 89.1 fL (80-94); Mean Platelet Vol. 10.1 fl (6.2-12.0); Monocyte# 0.74 X10^3/uL; Monocyte% 8.6 % (0-10); Neutrophil # 5.12 X10^3/uL (2.7-7.7); Neutrophil % 59.6 % (47-70); Platelet Count 247 K/mm3 (150-450); RBC Distribution Width CV 13.4 % (11.6-14.6); RBC Distribution Width SD 43.2 fl (35.1-43.9); Red Blood Count 5.06 M/mm3 (4.6-6.2); White Blood Count 8.6 K/mm3 (4.4-11.0)
[2018-07-11 17:00] LABS: POSITIVE COUNT NO; POSITIVE DIFFERENTIAL NO; POSITIVE MORPHOLOGY NO
[2018-07-11 17:11] LABS: Anion Gap 6 (5-15); BUN 16 mg/dL (7-18); BUN/Creat Ratio 12.7 RATIO (10-20); Calcium,Total 9.2 mg/dL (8.5-10.1); Chloride 107 mmol/L (98-107); Creatinine, Serum 1.26 mg/dL (0.70-1.30); EST Glomerular Filtration Rate 62 mL/min (>60); Est Glom Filt Rate - Afr Amer 76 mL/min (>60); Estimated Creatinine Clearance 61.83 ml/min; Glucose 100 mg/dL (74-106); Potassium 3.9 mmol/L (3.5-5.1); Sodium Level 142 mmol/L (136-145)
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
[2018-07-11] MEDS: LORazepam 1 MG Tablet PO (17:37)
[2018-07-11 17:46] LABS: Amphetamine Urine VISTA POSITIVE (<1000 ng/mL); Barbiturate Urine VISTA NEGATIVE (< 200 ng/mL); Benzodiazepine Urine VISTA NEGATIVE (< 200 ng/mL); Cocaine Urine VISTA NEGATIVE (< 300 ng/mL); Ecstacy Urine VISTA NEGATIVE (< 500 ng/mL); Methadone Urine VISTA NEGATIVE (< 300 ng/mL); PCP Urine VISTA NEGATIVE (< 25 ng/mL); THC Urine VISTA NEGATIVE (< 50 ng/mL); Vista UDS pH Range 7
[2018-07-11 17:57] LABS: Alcohol, Blood (Medical)-Serum < 3.0 mg/dL
--- NOTE | 2018-07-11 18:24 | NURSING ---
PER GEOFFREY WITH CRISIS PT HAS BEEN REFERRED TO [facility]
--- NOTE | 2018-07-11 19:26 | EKG12_ITS ---
Test Reason : Blood Pressure : / mmHG Vent. Rate : 079 BPM Atrial Rate : 079 BPM P-R Int : 132 ms QRS Dur : 078 ms QT Int : 380 ms P-R-T Axes : 053 -10 010 degrees QTc Int : 435 ms Normal sinus rhythm Normal ECG Confirmed by TRACE HESS MD ([id number]), rewrite editor MATI VARNER ([id number]) on 07/14/2018 11:05:51 AM Referred By: TARIQ Confirmed By:TRACE HESS MD
--- NOTE | 2018-07-11 20:12 | ED.RN ---
FAXED EKG AND LAB RESULTS TO [facility] REQUESTED.
[2018-07-12] VITALS (11 sets, daily range): BP systolic 125–132; BP diastolic 69–80; PULSE 68–90; RESP 14–16; TEMP 36.4; O2SAT 96–98
--- NOTE | 2018-07-12 02:12 | ED.RN ---
MARGARET CALLED, PER [facility], THIS PT IS #4 ON THEIR WAITING LIST, THEY WILL CALL WHEN ABLE TO TRANSPORT.
[2018-07-12] MEDS: Gabapentin 600 MG Tablet PO ×2 (07:57→12:54)
[2018-07-12] MEDS: RisperiDONE 0.5 MG Tablet 1 MG PO (07:57)
--- NOTE | 2018-07-12 08:30 | NURSING ---
CALLED [facility]. HAD TO LEAVE A MESSAGE
--- NOTE | 2018-07-12 10:47 | NURSING ---
CALLED [facility]. SHE SAID THEY HAVE BEEN CALLING AND LEAVING MESSAGES.
--- NOTE | 2018-07-12 11:49 | NURSING ---
CALLED [facility] FOR TRANSPORT. ETA IS ABOUT 1 HR
--- NOTE | 2018-07-12 12:41 | ED.RN ---
CALLED PHARMACY FOR NEUROTIN.
--- NOTE | 2018-07-12 12:58 | ED.RN ---
ems in ed to transport pt.
== END 2018-07-12 13:00 ==
LOC: ED 16:48
PROVIDERS: Emergency Provider Emergency Medicine
DX: F32.9 Major depressive disorder, single episode, unspecified (principal); R45.851 Suicidal ideations; F15.90 Other stimulant use, unspecified, uncomplicated; Z91.5 Personal history of self-harm
CPT/HCPCS: 80048; 80307; 80320; 85025; 93005; 99285; G0480

== ENCOUNTER 2018-12-02 22:08 | Emergency (ER) | payer MEDICAID, SELFPAY ==
[2018-07-11 16:41] VITALS: BMI 28.1
[2018-12-02 22:09] VITALS: BP 148/90; PULSE 99; RESP 16; TEMP 36.3; O2SAT 100; BMI 26.6
--- NOTE | 2018-12-03 00:13 | ED.VIS.PSYCH ---
History of Present Illness Chief Complaint: Mental Health Detail of Chief Complaint: paranoia Informant: Patient Onset: Today - last few hrs Context: Gradual Onset - after using methamphetamine tonight Timing: Continuous Current Severity: Moderate Maximum Severity: Moderate Worsened by: - - methamphetamine use Associated Symptoms: Paranoia. Negative for: Depressed, Hopelessness, Suicidal Thoughts, Visual Hallucinations, Auditory Hallucinations Narrative: Patient states he is a schizophrenic who stopped taking his medicines around 7-10 days ago or more because he went on a methamphetamine binge. He states he does not have access to his medications right now, because his network security officer has them, here in [place]. He states he has been using methamphetamine fairly heavily daily for the last couple weeks. States he has done that in the past, he used to be on amphetamines for ADHD when he was young. Tonight after using, he states he felt like the [place] police, the FBI, and the [place] were all after him. He is insightful to the fact that that is not the case. He denies using any other substances or alcohol. States he intends on getting his medications from his network security officer and taking them, and trying to stop using methamphetamine. He does not report any physical symptoms at this time, or any physical symptoms of withdrawal and mornings when he wakes up, before using again. - Past Medical History (1) Schizophrenia Status: Chronic Past Medical History - Allergies and Home Meds Allergies/Adverse Reactions: Allergies No Known Allergies Allergy (Verified 12/02/18 22:09) Primary Care Physician: [facility] [STAFF PHYSICIAN] - As soon as possible (for help with drug abuse) Smoking Status: Smoker, status unknown Alcohol: None Drugs: - - Methamphetamine Review of Systems General: Denies: Chills, Fever, Sweats Eyes: Denies: Visual changes - bilaterally, Diplopia ENT: Denies: Rhinorrhea, Sore throat Cardiovascular: Denies: Chest pain, Palpitations Respiratory: Denies: Dyspnea, Cough, Dyspnea on exertion Gastrointestinal: Denies: Abdominal pain, Nausea, Vomiting, Diarrhea, Melena, Hematochezia Genitourinary: Denies: Dysuria, Hematuria, Frequency Musculoskeletal: Denies: Back pain, Extremity Pain Skin: Denies: Rash, Wounds Neurological: Denies: Headache, Weakness, Numbness Psych: Reports: - - Paranoia. See HPI.. Denies: Depression, Suicidal thoughts, Suicidal ideations Physical Exam Vital Signs/Narrative: Vital Signs Temp Pulse Resp BP Pulse Ox 12/02/18 22:09 97.3 F L 99 16 148/90 H 100 Inital Vital Signs reviewed: Yes General: Well nourished, Well developed Head: Normocephalic, Atraumatic Eyes: Perrl, EOMI ENT: Moist mucous membranes, No rhinorrhea Neck: Supple, Nontender Cardiovascular: Regular rate, Regular rhythm, No murmurs Respiratory: No distress, CTA bilaterally, Chest nontender Abdomen: Soft, Nontender, Nondistended, Normal bowel sounds Back: Nontender, Normal Inspection Extremities: Nontender, No Edema Skin: Normal color, No rash, No Trauma Neurological: Alert, Oriented x3, Cranial nerves II-XII grossly intact, Normal Strength, Normal Sensation Psych: Normal Speech Pattern, Logical sequential goal directed thoughts, No suicidal or homicidal ideation, Normal Stable Appropriate Affect, Good Insight, Paranoid Ideation, Limited Judgement. Negative for: Pressured Speech, Incoherent thoughts, Hallucinations, Delusions Diagnostic/Tx/Re-eval Patient's vital signs are stable, his exam is unremarkable. He states he is just here because he suddenly was extremely paranoid after using methamphetamine. He is insightful into the fact that this is likely related to his methamphetamine use, and possibly to the fact that he has stopped using all of his medications. He states the soonest he can get his medications from his network security officer is tomorrow. He has a place to stay here tonight. I offer a dose of Ativan and discharge so that he can restart his medications tomorrow. He is amenable to that and I think that is reasonable. He was given resources for drug rehab which I encouraged him to call. ED Disposition - Plan for ED Patient: Disposition: Home or Assisted Living Diagnosis: Drug-induced paranoid state, Schizophrenia, Noncompliance with medication regimen Instructions: Drug Abuse, SCHIZOPHRENIA, General Referrals: [facility] [STAFF PHYSICIAN] - As soon as possible (for help with drug abuse) Additional Instructions: Get your medications tomorrow from your network security officer, and resume taking them as soon as possible.
[2018-12-03] MEDS: LORazepam 1 MG Tablet 2 MG PO (00:21)
[2018-12-03 00:32] VITALS: RESP 16
== END 2018-12-03 00:33 | disposition home or self-care (01) ==
PROVIDERS: Emergency Provider Emergency Medicine
DX: F15.959 Other stimulant use, unspecified with stimulant-induced psychotic disorder, unspecified (principal); F20.9 Schizophrenia, unspecified; F17.200 Nicotine dependence, unspecified, uncomplicated; Z91.14 Patient's other noncompliance with medication regimen
CPT/HCPCS: 99283

== ENCOUNTER 2018-12-05 07:13 | Emergency (ER) | payer MEDICAID, SELFPAY ==
[2018-12-05 07:14] VITALS: BP 125/92; PULSE 94; RESP 16; TEMP 36.2; O2SAT 97; BMI 28.1
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
--- NOTE | 2018-12-05 07:51 | ED.RN ---
CONTACTED [facility]; CRISIS WILL CALL US AFTER [phone]
[2018-12-05 07:57] LABS: Absolute Lymphocyte Count 1.35 X10^3/uL (0.83-4.51); Absolute Neutrophil Count 7.7 X10^3/uL (2.0-7.7); Basophil# 0.04 X10^3/uL; Basophil% 0.4 % (0-1); Eosinophil# 0.15 X10^3/uL; Eosinophils% 1.5 % (0-5); Hematocrit 40.5 % (40-54); Hemoglobin 14.3 g/dL (13.0-16.5); Lymphocyte # 1.35 X10^3/ul (4.0); Lymphocyte % 13.5 % (19-41); Mean Corp Hgb Conc 35.3 g/dL (32-36); Mean Corpuscular Hgb 31.4 pg (27.0-32.0); Monocyte# 0.74 X10^3/uL; Monocyte% 7.4 % (0-10); NRBC Flagged by Analyzer 0 % (0-5); Neutrophil # 7.69 X10^3/uL (2.7-7.7); Neutrophil % 76.7 % (47-70); Platelet Count 266 K/mm3 (150-450); RBC Distribution Width CV 12.9 % (11.6-14.6); RBC Distribution Width SD 42.1 fl (35.1-43.9); Red Blood Count 4.55 M/mm3 (4.6-6.2)
[2018-12-05 08:08] LABS: Anion Gap 8 (5-15); BUN 19 mg/dL (7-18); BUN/Creat Ratio 16.2 RATIO (10-20); Calcium,Total 9.3 mg/dL (8.5-10.1); Chloride 107 mmol/L (98-107); Creatinine, Serum 1.17 mg/dL (0.70-1.30); EST Glomerular Filtration Rate 68 mL/min (>60); Est Glom Filt Rate - Afr Amer 82 mL/min (>60); Estimated Creatinine Clearance 66.58 ml/min; Glucose 91 mg/dL (74-106); Sodium Level 142 mmol/L (136-145)
[2018-12-05 08:16] LABS: Alcohol, Blood (Medical)-Serum < 3.0 mg/dL
[2018-12-05 08:18] LABS: Amphetamine Urine VISTA POSITIVE (<1000 ng/mL); Barbiturate Urine VISTA NEGATIVE (< 200 ng/mL); Benzodiazepine Urine VISTA NEGATIVE (< 200 ng/mL); Cocaine Urine VISTA NEGATIVE (< 300 ng/mL); Ecstacy Urine VISTA POSITIVE (< 500 ng/mL); Methadone Urine VISTA NEGATIVE (< 300 ng/mL); PCP Urine VISTA NEGATIVE (< 25 ng/mL); THC Urine VISTA NEGATIVE (< 50 ng/mL); Vista UDS pH Range 5
--- NOTE | 2018-12-05 09:05 | NURSING ---
WILL VILA WITH [facility]; SHE IS GOING BACK TO HER OFFICE TO TYPE THE ASSESSMENT BUT WILL BE MAKING THE REFERRAL TO [facility] AND TO [facility]
[2018-12-05 12:02] VITALS: BP 151/89; PULSE 69; RESP 12; O2SAT 100
[2018-12-05 12:03] VITALS: BP 151/89; PULSE 69; RESP 16; O2SAT 100
== END 2018-12-05 12:05 ==
LOC: ED 07:48
PROVIDERS: Emergency Provider Emergency Medicine
DX: F20.0 Paranoid schizophrenia (principal); F32.9 Major depressive disorder, single episode, unspecified; R45.851 Suicidal ideations; F15.10 Other stimulant abuse, uncomplicated; Z72.0 Tobacco use
CPT/HCPCS: 80048; 80307; 80320; 85025; 99284; G0480